=== PATIENT | male | born 1970 | race Caucasian/White ===

== ENCOUNTER 2021-01-01 16:54 | Emergency (ER) | payer OTHER ==
[~2021-01-01] VITALS: Ht 172.7 cm; Wt 84.4 kg
[~2021-01-01 16:54] MED LIST: ESCI10 PO
[2021-01-01 19:02] LABS: Source, Urine Clean Catch
[2021-01-01 19:08] LABS: Appearance, Urine Clear (Clear); Bilirubin, Urine Neg (Neg); Blood, Urine 1+ (Neg); Color, Urine Yellow (P-Yellow); Glucose Qualitative, Urine Neg (Neg); Ketones, Urine 1+ (Neg); Leukocyte Esterase, Urine Neg (Neg); Nitrite, Urine Neg (Neg); Protein, Urine 1+ (Neg); Specific Gravity, Urine 1.025 (1.003-1.022); Urobilinogen, Urine NORM (Normal)
[2021-01-01 19:22] LABS: Bacteria Mod /hpf; Mucus Light (0-Heavy); Red Blood Cells, Urine 0-2 /hpf (0-2); Squamous Epithelial Cells Not Seen /hpf (Few); White Blood Cells, Urine 0-2 /hpf (0-5)
== END 2021-01-01 20:00 | disposition home or self-care (01) ==
LOC: ER 16:54
PROVIDERS: Physician Assistant
DX: N43.3 Hydrocele, unspecified (principal); Q55.20 Unspecified congenital malformations of testis and scrotum; Z88.5 Allergy status to narcotic agent; Z79.899 Other long term (current) drug therapy; Z87.891 Personal history of nicotine dependence
CPT/HCPCS: 76870; 81001; 87086; 99284-25

== ENCOUNTER 2021-04-11 05:47 | Day surgery (SDC) | payer OTHER ==
[~2021-04-11] VITALS: Ht 172.7 cm; Wt 86.1 kg
[2021-04-11] MEDS ORDERED: FENO48 PO (06:22)
--- NOTE | 2021-04-11 10:35 | NUR ---
Patient up to Ambulate independently. Gait steady. Discharge instructions reviewed with patient. Patient verbalizes understanding. Copy given to patient to take home. Discharged via wheelchair to private car for ride home.
== END 2021-04-11 10:25 | disposition home or self-care (01) ==
LOC: ORSCMMR 05:47 → ORD 08:45 → ORSCMMR 10:25
PROVIDERS: Orthopaedic Surgery
PROC: 0SCC0ZZ Extirpation of Matter from Right Knee Joint, Open Approach (ICD-10-PCS; principal; 2021-04-11 07:30)
PROC: 0LML0ZZ Reattachment of Right Upper Leg Tendon, Open Approach (ICD-10-PCS; principal; 2021-04-11 07:30)
DX: S76.111A Strain of right quadriceps muscle, fascia and tendon, initial encounter (principal); S82.091A Other fracture of right patella, initial encounter for closed fracture; E78.5 Hyperlipidemia, unspecified; Z87.891 Personal history of nicotine dependence; Z79.899 Other long term (current) drug therapy
CPT/HCPCS: A9270; C1713; J0171; J0690; J0735; J1100; J1885; J2405; J2704; J2795; J3010; J7120

== ENCOUNTER 2021-07-11 14:55 | Emergency (ER) | payer OTHER ==
[~2021-07-11] VITALS: Ht 172.7 cm; Wt 87.5 kg
[~2021-07-11 14:55] MED LIST changes: +FENO48 PO
[2021-07-11 15:49] LABS: BASOPHILS ABSOLUTE AUTO 0.03 K/mm3 (0.00-0.23); BASOPHILS PERCENT AUTO 0 % (0-2); EOSINOPHILS ABSOLUTE AUTO 0.03 K/mm3 (0.00-0.68); EOSINOPHILS PERCENT AUTO 0 % (0-6); Hematocrit 45.8 % (37.0-53.0); Hemoglobin 16.8 g/dL (13.5-17.5); IMMATURE GRAN ABSOLUTE AUTO 0.04 K/mm3 (0.00-0.10); IMMATURE GRAN PERCENT AUTO 0 % (0-1); LYMPHOCYTES ABSOLUTE AUTO 0.93 K/mm3 (0.84-5.20); LYMPHOCYTES PERCENT AUTO 7 % (21-46); MONOCYTES ABSOLUTE AUTO 0.38 K/mm3 (0.16-1.47); MONOCYTES PERCENT AUTO 3 % (4-13); Mean Corpuscular HGB 35.7 pg (26.0-34.0); Mean Corpuscular HGB Conc 36.7 g/dL (31.5-36.5); Mean Corpuscular Volume 97 fL (80-100); Mean Platelet Volume 9.8 fL (9.1-12.4); NEUTROPHILS ABSOLUTE AUTO 11.67 K/mm3 (1.96-9.15); NEUTROPHILS PERCENT AUTO 89 % (41-73); Platelet Count 173 K/mm3 (150-400); RDW Coefficient Variation 12.3 % (11.7-14.2); RDW Standard Deviation 44.6 fL (35.1-46.3); Red Blood Cell Count 4.71 M/mm3 (4.30-5.90); White Blood Cell Count 13.08 K/mm3 (4.00-11.30)
[2021-07-11] MEDS ORDERED: ASPI81CH PO (17:03)
[2021-07-11 17:06] LABS: Source, Urine Clean Catch
[2021-07-11 17:09] LABS: Appearance, Urine Clear (Clear); Bilirubin, Urine Neg (Neg); Blood, Urine 2+ (Neg); Color, Urine Yellow (P-Yellow); Glucose Qualitative, Urine Neg (Neg); Ketones, Urine Neg (Neg); Leukocyte Esterase, Urine Neg (Neg); Nitrite, Urine Neg (Neg); Protein, Urine 1+ (Neg); Urobilinogen, Urine NORM (Normal)
[2021-07-11 17:15] LABS: Alanine Aminotransfer (ALT/SGP 69 U/L (12-78); Albumin, Blood 3.8 g/dL (3.4-5.0); Alk Phos 130 U/L (50-136); Anion Gap 7 mmol/L (6-16); Aspartate Aminotrans (AST/SGOT 33 U/L (12-37); Bilirubin, Total 0.8 mg/dL (0.1-1.0); Blood Urea Nitrogen 13 mg/dL (8-24); Bun/Creatinine Ratio 14.6 (12.0-20.0); CO2, Blood 22 mmol/L (21-32); Calcium, Blood 8.9 mg/dL (8.5-10.1); Chloride, Blood 108 mmol/L (98-108); Creatinine, Blood 0.89 mg/dL (0.60-1.20); Globulin, Blood 3.9 g/dL (2.2-4.0); Glomerular Filtration Rate >60 (60-); Glucose, Blood 162 mg/dL (70-99); Potassium, Blood 4.2 mmol/L (3.5-5.5); Sodium, Blood 137 mmol/L (136-145); Total Protein, Blood 7.7 g/dL (6.4-8.2)
[2021-07-11 17:26] LABS: Amorphous Light (0-Heavy); Bacteria Few /hpf; Mucus Light (0-Heavy)
[2021-07-11 17:28] LABS: Red Blood Cells, Urine 0-2 /hpf (0-2); Squamous Epithelial Cells Rare /hpf (Few); White Blood Cells, Urine Rare /hpf (0-5)
[2021-07-11] MEDS ORDERED: ONDA4ODT MM (18:25)
== END 2021-07-11 18:37 | disposition home or self-care (01) ==
LOC: ER 14:55
PROVIDERS: Physician Assistant
DX: Z87.891 Personal history of nicotine dependence (principal); K85.90 Acute pancreatitis without necrosis or infection, unspecified
CPT/HCPCS: 36415; 74176; 80053; 81001; 83690; 85025; A9270; J1170; J2405; J7030

== ENCOUNTER 2021-07-12 10:21 | Inpatient (IN) | payer OTHER ==
[~2021-07-12] VITALS: Ht 172.7 cm; Wt 88.0 kg
[~2021-07-12 10:21] MED LIST changes: +ASPI81CH PO; +ONDA4ODT MM
[2021-07-12 10:48] LABS: BASOPHILS ABSOLUTE AUTO 0.03 K/mm3 (0.00-0.23); BASOPHILS PERCENT AUTO 0 % (0-2); EOSINOPHILS PERCENT AUTO 0 % (0-6); Hemoglobin 17.9 g/dL (13.5-17.5); IMMATURE GRAN ABSOLUTE AUTO 0.03 K/mm3 (0.00-0.10); IMMATURE GRAN PERCENT AUTO 0 % (0-1); LYMPHOCYTES PERCENT AUTO 8 % (21-46); MONOCYTES PERCENT AUTO 5 % (4-13); Mean Corpuscular HGB 34.3 pg (26.0-34.0); Mean Corpuscular HGB Conc 35.1 g/dL (31.5-36.5); Mean Corpuscular Volume 98 fL (80-100); Mean Platelet Volume 9.9 fL (9.1-12.4); NEUTROPHILS ABSOLUTE AUTO 6.65 K/mm3 (1.96-9.15); NEUTROPHILS PERCENT AUTO 86 % (41-73); Platelet Count 159 K/mm3 (150-400); RDW Coefficient Variation 12.6 % (11.7-14.2); RDW Standard Deviation 45.3 fL (35.1-46.3); Red Blood Cell Count 5.22 M/mm3 (4.30-5.90); White Blood Cell Count 7.71 K/mm3 (4.00-11.30)
[2021-07-12 11:06] LABS: Alanine Aminotransfer (ALT/SGP 194 U/L (12-78); Albumin, Blood 3.8 g/dL (3.4-5.0); Albumin/Globulin Ratio 0.9 (0.8-1.8); Alk Phos 178 U/L (50-136); Anion Gap 11 mmol/L (6-16); Aspartate Aminotrans (AST/SGOT 209 U/L (12-37); Bilirubin, Total 3.7 mg/dL (0.1-1.0); Blood Urea Nitrogen 14 mg/dL (8-24); Bun/Creatinine Ratio 15.2 (12.0-20.0); CO2, Blood 22 mmol/L (21-32); Calcium, Blood 9.2 mg/dL (8.5-10.1); Chloride, Blood 103 mmol/L (98-108); Creatinine, Blood 0.92 mg/dL (0.60-1.20); Globulin, Blood 4.1 g/dL (2.2-4.0); Glomerular Filtration Rate >60 (60-); Glucose, Blood 258 mg/dL (70-99); Potassium, Blood 3.8 mmol/L (3.5-5.5); Sodium, Blood 136 mmol/L (136-145); Total Protein, Blood 7.9 g/dL (6.4-8.2)
[2021-07-12 12:39] LABS: Influenza A, PCR NEGATIVE (NEGATIVE); Influenza B, PCR NEGATIVE (NEGATIVE); Resp Syncytial Virus, PCR NEGATIVE (NEGATIVE); SARS-Cov-2 (COVID-19) PCR, MMC NEGATIVE (NEGATIVE)
--- NOTE | 2021-07-12 13:00 | NUR ---
pt has all his paper work and belongings, left via wheelchair with management coordinator in attendence.
[2021-07-12 14:07] LABS: International Normalized Ratio 1.09; Prothrombin Time Results 11.4 Sec (9.7-11.5)
[2021-07-12 21:42] LABS: U Amphetamine Screen Not Detected; U Barbituate Screen Not Detected; U Benzodiazapine Screen Not Detected; U Buprenorphine Screen Not Detected; U Cannabinoids Screen Not Detected; U Cocaine Screen Not Detected; U Methadone Screen Not Detected; U Methamphetamine Screen Not Detected; U Opiates Screen DETECTED; U Oxycodone Screen DETECTED; U Phencyclidine Screen Not Detected; U Propoxyphene Screen Not Detected
--- NOTE | 2021-07-13 01:18 | NUR ---
AT 2330, JUST AFTER TAKING A COUPLE BITES OF ORANGE CHOCOLATE, THE PATIENT BEGAN WRETCHING APPROX 200ML OF BROWNISH/RED CLEAR EMESIS WITH SMALL AMOUNT OF REDDISH STREAKS. THEN, AROUND 0100, DEANDRA FINISHED THE WATER FROM A SMALL GLASS OF ICE, AND VOMITED 150ML OF REDDISH/BROWN MUCOUSY EMESIS WITH RED STRANDS OF TISSUE AND WHAT LOOKED LIKE TWO 1-1.5" LONG WHITISH/YELLOW PIECES OF ADIPOSE TISSUE. AT THAT TIME, HE DECLINED WANT FOR ANY ANTIEMETICS, THEN HAS BEEN SLEEPING SITTING STRAIGHT UP IN BED SLEEPING EVER SINCE.
--- NOTE | 2021-07-13 02:57 | NUR ---
ANOTHER 150ML EMESIS BROWN/REDDISH WITH MUCOUSY TEXTURE. MD NOTIFIED. PATIENT IS TO BE STRICT NPO. NO ICE CHIPS OR H2O. EACH TIME HE EATS ICE OR SIPS H2O, HE VOMITS. CIWA IS AT AN 8. ATIVAN GIVEN PER EMAR
[2021-07-13 04:01] LABS: Hematocrit 51.1 % (37.0-53.0); Hemoglobin 17.6 g/dL (13.5-17.5); Mean Corpuscular HGB 34.1 pg (26.0-34.0); Mean Corpuscular HGB Conc 34.4 g/dL (31.5-36.5); Mean Corpuscular Volume 99 fL (80-100); Mean Platelet Volume 10.1 fL (9.1-12.4); Platelet Count 124 K/mm3 (150-400); RDW Coefficient Variation 13.1 % (11.7-14.2); RDW Standard Deviation 48.1 fL (35.1-46.3); Red Blood Cell Count 5.16 M/mm3 (4.30-5.90); White Blood Cell Count 8.72 K/mm3 (4.00-11.30)
[2021-07-13 04:13] LABS: International Normalized Ratio 1.3; Prothrombin Time Results 13.4 Sec (9.7-11.5)
[2021-07-13 04:39] LABS: Alanine Aminotransfer (ALT/SGP 149 U/L (12-78); Albumin, Blood 3.3 g/dL (3.4-5.0); Albumin/Globulin Ratio 1.2 (0.8-1.8); Alk Phos 172 U/L (50-136); Anion Gap 10 mmol/L (6-16); Aspartate Aminotrans (AST/SGOT 98 U/L (12-37); Bilirubin, Total 6.8 mg/dL (0.1-1.0); Blood Urea Nitrogen 22 mg/dL (8-24); Bun/Creatinine Ratio 21.6 (12.0-20.0); CO2, Blood 24 mmol/L (21-32); Calcium, Blood 8.6 mg/dL (8.5-10.1); Chloride, Blood 104 mmol/L (98-108); Creatinine, Blood 1.02 mg/dL (0.60-1.20); Globulin, Blood 2.8 g/dL (2.2-4.0); Glomerular Filtration Rate >60 (60-); Glucose, Blood 225 mg/dL (70-99); Magnesium, Blood 1.7 mg/dL (1.6-2.4); Potassium, Blood 4.2 mmol/L (3.5-5.5); Sodium, Blood 138 mmol/L (136-145); Total Protein, Blood 6.1 g/dL (6.4-8.2)
[2021-07-13 05:50] LABS: BAND PERCENT MAN 21 % (0-8); BASOPHILS ABSOLUTE MAN 0.08 K/mm3 (0.00-0.23); BASOPHILS PERCENT MAN 1 % (0-2); EOSINOPHILS PERCENT MAN 0 % (0-6); LYMPHOCYTES ABSOLUTE MAN 0.69 K/mm3 (0.84-5.20); LYMPHOCYTES PERCENT MAN 8 % (21-46); MONOCYTES ABSOLUTE MAN 0.69 K/mm3 (0.16-1.47); MONOCYTES PERCENT MAN 8 % (4-13); NEUTROPHILS ABSOLUTE MAN 7.23 K/mm3 (1.96-9.15); SEG NEUTROPHILS PERCENT MAN 62 % (41-73); TOTAL CELLS COUNTED 100
--- NOTE | 2021-07-13 05:57 | NUR ---
DEANDRA HAS HAD A MYRIAD OF PROBLEMS OVERNIGHT. HE HAS HAD UNRELENTING NAUSEA, WITH EMESIS TOTALING 700ML OF BROWN/RED MUCOUSY BLOOD TINGED FLUID. (PLEASE SEE NURSES NOTES) EACH TIME THE PATIENT WAS DISTURBED, HE WOULD VOMIT EITHER IMMEDIATELY OR 3-4 MINUTES LATER. BOTH ZOSYN, REGLAN AND ATIVAN HAVE BEEN TRIED TO GIVE DEANDRA SOME RELIEF. EACH SEEMS VERY TEMPORARY. NIGHT HOSPITALIST WAS INFORMED OF SITUATION. STAT HEMOGRAM WAS ORDERED REVEALING HGB OF 17.6. PATIENT IS ON STRICT I&O. INCLUDING ICE CHIPS PER NIGHT HOSPITALIST. AWAITING DICTATION FROM ADMITTING RESIDENT AND DR. HAWKINS.
[2021-07-13 08:26] LABS: CHOL/HDL RATIO 20.3; Cholesterol 244 mg/dL (50-200); HDL Cholesterol 12 mg/dL (>39); LDL/HDL RATIO Unable to Calculate; Low Density Lipoprotein Chol Unable to Calculate mg/dL (0-110); Triglycerides 586 mg/dL (30-160); Very Low Density Lipoprot Chol 117 mg/dL (6-32)
[2021-07-13 08:43] LABS: LDL Direct Measurement 79 mg/dL (0-130)
--- NOTE | 2021-07-13 17:15 | NUR ---
SHIFT SUMMARY PATIENT ALERT AND ORIENTED THROUGHOUT THIS SHIFT. PATIENT CONTINUES TO HAVE A DISTENDED ABDOMEN WITH ABDOMINAL PAIN. PATIENT DENIES NEED FOR PAIN MEDICATION THROUGHOUT THIS SHIFT. PATIENT N/V THROUGHOUT THIS SHIFT. PATIENT MEDICATED PRN THIS AM, PATIENT DENIES NEED FOR FURTHER MEDICATION THIS AFTERNOON. PATIENT DRINKING ILAN MIST AND L/L GATORADE TO TEST TOLERANCE OF CLEAR LIQUIDS. PATIENT STATES THAT HE IS TOLERATING THESE BETTER THAN WATER. PATIENT CURRENTLY RESTING IN BED.
--- NOTE | 2021-07-14 05:23 | NUR ---
SHIFT SUMMARY PT. ADMITTED WITH NECROTIZING PANCREATITIS AND CIWA IN PLACE. PT. IS ON CLEAR LIQUIDS THIS SHIFT ADVANCED TOLERATED PER ORDER. PT. THREW UP RED/BROWN EMESIS ALL SHIFT AND C/O PAIN. MEDICATED PER EMAR AND RLL COLOSTOMY BAG INTACT. SPEECH NOT CLEAR AT TIMES BUT ABLE TO MAKE REQUESTS KNOWN. PT. RESTED SOME THIS SHIFT AND THIS NURSE WILL CONTINUE TO MONITOR UNTIL REPORT IS GIVEN.
[2021-07-14 07:30] LABS: BASOPHILS ABSOLUTE AUTO 0.03 K/mm3 (0.00-0.23); BASOPHILS PERCENT AUTO 0 % (0-2); Hemoglobin 14.7 g/dL (13.5-17.5); LYMPHOCYTES PERCENT AUTO 12 % (21-46); MONOCYTES ABSOLUTE AUTO 0.44 K/mm3 (0.16-1.47); MONOCYTES PERCENT AUTO 6 % (4-13); Mean Corpuscular HGB 34.4 pg (26.0-34.0); Mean Corpuscular Volume 98 fL (80-100); Mean Platelet Volume 10.6 fL (9.1-12.4); Platelet Count 137 K/mm3 (150-400); RDW Coefficient Variation 13.2 % (11.7-14.2); RDW Standard Deviation 47.8 fL (35.1-46.3); Red Blood Cell Count 4.27 M/mm3 (4.30-5.90); White Blood Cell Count 7.65 K/mm3 (4.00-11.30)
[2021-07-14 07:35] LABS: EOSINOPHILS ABSOLUTE AUTO 0.02 K/mm3 (0.00-0.68); EOSINOPHILS PERCENT AUTO 0 % (0-6); IMMATURE GRAN ABSOLUTE AUTO 0.07 K/mm3 (0.00-0.10); IMMATURE GRAN PERCENT AUTO 1 % (0-1); NEUTROPHILS ABSOLUTE AUTO 6.19 K/mm3 (1.96-9.15); NEUTROPHILS PERCENT AUTO 81 % (41-73)
[2021-07-14 07:45] LABS: Alanine Aminotransfer (ALT/SGP 155 U/L (12-78); Albumin, Blood 2.9 g/dL (3.4-5.0); Albumin/Globulin Ratio 0.9 (0.8-1.8); Alk Phos 224 U/L (50-136); Anion Gap 7 mmol/L (6-16); Aspartate Aminotrans (AST/SGOT 133 U/L (12-37); Bilirubin, Total 6.7 mg/dL (0.1-1.0); Blood Urea Nitrogen 29 mg/dL (8-24); Bun/Creatinine Ratio 32.3 (12.0-20.0); CO2, Blood 34 mmol/L (21-32); Calcium, Blood 8.4 mg/dL (8.5-10.1); Chloride, Blood 98 mmol/L (98-108); Globulin, Blood 3.1 g/dL (2.2-4.0); Glomerular Filtration Rate >60 (60-); Glucose, Blood 152 mg/dL (70-99); Potassium, Blood 3.1 mmol/L (3.5-5.5); Sodium, Blood 139 mmol/L (136-145)
--- NOTE | 2021-07-14 17:42 | NUR ---
PT AOX4 AND COOPERATIVE OF CARE. PT HAS CONTINUED TO NEED TREATMENT FOR NAUSEA AND HAS HAD MULTIPLE EPISODES OF EMESIS DARK BROWN IN COLOR AND WAS TREATED PER EMAR. PT HAD IV GO BAD AND A NEW POWERGLIDE WAS PLACE. PT ALSO HAS COMPLAINED OF BACK PAIN AND IS TREATED PER EMAR. PT RESTING IN BED AT THIS TIME WILL CONTINUE TO MONITOR.
--- NOTE | 2021-07-15 05:07 | NUR ---
SHIFT SUMMARY PT. O2 DROPPED TO [address], 4L OF O2 APPLIED BY RESIPRATORY. PT. HAS CONTINUED TO EXPERIENCE N/V THIS SHIFT AND MEDICATED PER EMAR. BACK PAIN INCREASED THIS SHIFT AND WAS MEDICATED PER EMAR. DIET IS STILL CLEAR LIQUIDS AND NOTHING HAS STAYED DOWN. WILL CONTINUE TO MONITOR UNTIL REPORT IS GIVEN.
[2021-07-15 05:17] LABS: BASOPHILS ABSOLUTE AUTO 0.04 K/mm3 (0.00-0.23); BASOPHILS PERCENT AUTO 1 % (0-2); Hematocrit 42.5 % (37.0-53.0); Hemoglobin 14.6 g/dL (13.5-17.5); LYMPHOCYTES ABSOLUTE AUTO 0.65 K/mm3 (0.84-5.20); LYMPHOCYTES PERCENT AUTO 9 % (21-46); MONOCYTES ABSOLUTE AUTO 0.32 K/mm3 (0.16-1.47); MONOCYTES PERCENT AUTO 5 % (4-13); Mean Corpuscular HGB 33.6 pg (26.0-34.0); Mean Corpuscular HGB Conc 34.4 g/dL (31.5-36.5); Mean Corpuscular Volume 98 fL (80-100); Mean Platelet Volume 10.8 fL (9.1-12.4); Platelet Count 169 K/mm3 (150-400); RDW Coefficient Variation 13.2 % (11.7-14.2); RDW Standard Deviation 47.8 fL (35.1-46.3); Red Blood Cell Count 4.34 M/mm3 (4.30-5.90); White Blood Cell Count 6.89 K/mm3 (4.00-11.30)
[2021-07-15 05:20] LABS: EOSINOPHILS ABSOLUTE AUTO 0.01 K/mm3 (0.00-0.68); EOSINOPHILS PERCENT AUTO 0 % (0-6); IMMATURE GRAN ABSOLUTE AUTO 0.04 K/mm3 (0.00-0.10); IMMATURE GRAN PERCENT AUTO 1 % (0-1); NEUTROPHILS ABSOLUTE AUTO 5.83 K/mm3 (1.96-9.15); NEUTROPHILS PERCENT AUTO 85 % (41-73)
[2021-07-15 05:38] LABS: BAND PERCENT MAN 3 % (0-8); BASOPHILS PERCENT MAN 0 % (0-2); EOSINOPHILS PERCENT MAN 0 % (0-6); LYMPHOCYTES ABSOLUTE MAN 0.68 K/mm3 (0.84-5.20); LYMPHOCYTES PERCENT MAN 10 % (21-46); MONOCYTES ABSOLUTE MAN 0.27 K/mm3 (0.16-1.47); MONOCYTES PERCENT MAN 4 % (4-13); NEUTROPHILS ABSOLUTE MAN 5.92 K/mm3 (1.96-9.15); SEG NEUTROPHILS PERCENT MAN 83 % (41-73); TOTAL CELLS COUNTED 100
[2021-07-15 06:10] LABS: Alanine Aminotransfer (ALT/SGP 244 U/L (12-78); Albumin, Blood 2.9 g/dL (3.4-5.0); Albumin/Globulin Ratio 0.9 (0.8-1.8); Alk Phos 349 U/L (50-136); Anion Gap 13 mmol/L (6-16); Aspartate Aminotrans (AST/SGOT 226 U/L (12-37); Bilirubin, Total 7.4 mg/dL (0.1-1.0); Blood Urea Nitrogen 29 mg/dL (8-24); Bun/Creatinine Ratio 35.1 (12.0-20.0); CO2, Blood 28 mmol/L (21-32); Calcium, Blood 8.9 mg/dL (8.5-10.1); Chloride, Blood 99 mmol/L (98-108); Creatinine, Blood 0.83 mg/dL (0.60-1.20); Globulin, Blood 3.3 g/dL (2.2-4.0); Glomerular Filtration Rate >60 (60-); Glucose, Blood 165 mg/dL (70-99); Potassium, Blood 3.5 mmol/L (3.5-5.5); Sodium, Blood 140 mmol/L (136-145); Total Protein, Blood 6.2 g/dL (6.4-8.2)
--- NOTE | 2021-07-15 07:33 | NUR ---
pt laying in bed, called nurse in but not clear what he needed, he states he's feeling some better, ostomy is empty, asked him how long it's been since it needed to be emtied, he didn't know, power glide to nighat site flushes, but ua is very swollen and tight, notified charge nurse, pt follows commands and is cooperative with care, lungs are clear t/o, resp even and unlabored, no cough noted, currently on 4 liters 02 via n/c, hrr, tele in place running st with bbb, no edema noted, ppp+1, cap refill <3sec, vs stable, afebrile, bt not auscultated in any quad, voiding dk geo urine via urinal, skin c/w/d, haley rdz, call light in reach.
--- NOTE | 2021-07-15 16:02 | NUR ---
power glide this am infiltrated, a new one was placed to his alvaro, this infiltrated, picc line was considered, but unable to obtain access, pic placed to [facility], this infiltrated, called Dr. Hodges about this and asked for c.l. placement. she will get back to me. call light in reach.
--- NOTE | 2021-07-15 18:23 | NUR ---
all iv access infiltrated, Dr. Leach was consulted to place a central line, charge nurse states there is a blockage and will need interventional radiologist. zofran given prior to procedure. no further changes this shift. call light in reach.
--- NOTE | 2021-07-15 21:44 | NUR ---
DAUGHTER, CELSO NOTIFIED THAT HER DAD HAD BEEN TRANSFERRED TO PCU 9.
--- NOTE | 2021-07-15 21:49 | NUR ---
2129 PT TRANSFERED FROM MED FLOOR TO ROOM 9, ASSUMED CARE OF PT, REPORT REC'Victor M KAYE RN
[2021-07-16 04:51] LABS: BASOPHILS ABSOLUTE AUTO 0.04 K/mm3 (0.00-0.23); BASOPHILS PERCENT AUTO 1 % (0-2); EOSINOPHILS ABSOLUTE AUTO 0.05 K/mm3 (0.00-0.68); EOSINOPHILS PERCENT AUTO 1 % (0-6); Hematocrit 38.7 % (37.0-53.0); Hemoglobin 13.3 g/dL (13.5-17.5); IMMATURE GRAN ABSOLUTE AUTO 0.07 K/mm3 (0.00-0.10); IMMATURE GRAN PERCENT AUTO 1 % (0-1); LYMPHOCYTES ABSOLUTE AUTO 0.71 K/mm3 (0.84-5.20); LYMPHOCYTES PERCENT AUTO 11 % (21-46); MONOCYTES ABSOLUTE AUTO 0.36 K/mm3 (0.16-1.47); MONOCYTES PERCENT AUTO 6 % (4-13); Mean Corpuscular HGB Conc 34.4 g/dL (31.5-36.5); Mean Corpuscular Volume 99 fL (80-100); Mean Platelet Volume 11.1 fL (9.1-12.4); NEUTROPHILS ABSOLUTE AUTO 5.26 K/mm3 (1.96-9.15); NEUTROPHILS PERCENT AUTO 81 % (41-73); Platelet Count 142 K/mm3 (150-400); RDW Coefficient Variation 13.6 % (11.7-14.2); RDW Standard Deviation 49.4 fL (35.1-46.3); Red Blood Cell Count 3.91 M/mm3 (4.30-5.90); White Blood Cell Count 6.49 K/mm3 (4.00-11.30)
[2021-07-16 05:05] LABS: Anion Gap 10 mmol/L (6-16); Blood Urea Nitrogen 40 mg/dL (8-24); Bun/Creatinine Ratio 38.5 (12.0-20.0); CO2, Blood 30 mmol/L (21-32); Calcium, Blood 8.6 mg/dL (8.5-10.1); Chloride, Blood 99 mmol/L (98-108); Creatinine, Blood 1.04 mg/dL (0.60-1.20); Glomerular Filtration Rate >60 (60-); Glucose, Blood 150 mg/dL (70-99); Sodium, Blood 139 mmol/L (136-145)
--- NOTE | 2021-07-16 06:21 | NUR ---
0615 PT AM LABS SHOW K+ 3.0, DR HECTOR AWARE. PT HAS NO SALUD ACCESS, WILL HAVE CVL PLACED VIA INTERVENTIONAL RADIOLGY AND IS ALSO NPO DUE TO N/V. MICHAEL KAYE
--- NOTE | 2021-07-16 17:54 | NUR ---
PT ARRIVED TO [facility] AT 1750. PT AOX3 AND COOPERATIVE OF CARE. PT RESTING IN BED. PT HAD MILD NAUSEA AFTER TRYING TO DRINK SOME BROTH PRIOR TO TRANSFER. PT HAS EMESIS BAG WITHIN REACH. CALL LIGHT WITHIN REACH WILL CONTINUE TO MONTITOR.
--- NOTE | 2021-07-16 18:03 | NUR ---
TRANSFER SUMMARY: REPORT GIVEN TO NELLIE RODRIGUEZ, TRANSFERRED VIA BED TO ROOM 364. PATIENT DENIES CHEST PAIN, SOB. MED STATUS NO TELE. CLINIMIX AND BELONGINGS ALONG FOR TRANSFER BY SHOSHANA RODRIGUEZ AND KATHRIN POZO II. PATIENT ON RA 94-95%.
[2021-07-17 04:59] LABS: Hematocrit 38.1 % (37.0-53.0); Hemoglobin 13.1 g/dL (13.5-17.5); Mean Corpuscular HGB 34.1 pg (26.0-34.0); Mean Corpuscular HGB Conc 34.4 g/dL (31.5-36.5); Mean Corpuscular Volume 99 fL (80-100); NRBC ABSOLUTE 0.02 K/mm3 (0.00-0.02); NRBC Auto 0.3 /100 WBC (0.0-0.2); Platelet Count 153 K/mm3 (150-400); RDW Standard Deviation 50.9 fL (35.1-46.3); Red Blood Cell Count 3.84 M/mm3 (4.30-5.90); White Blood Cell Count 6.67 K/mm3 (4.00-11.30)
[2021-07-17 06:12] LABS: Alanine Aminotransfer (ALT/SGP 174 U/L (12-78); Albumin, Blood 2.4 g/dL (3.4-5.0); Albumin/Globulin Ratio 0.8 (0.8-1.8); Alk Phos 280 U/L (50-136); Anion Gap 10 mmol/L (6-16); Aspartate Aminotrans (AST/SGOT 97 U/L (12-37); Bilirubin, Total 2.1 mg/dL (0.1-1.0); Blood Urea Nitrogen 26 mg/dL (8-24); Bun/Creatinine Ratio 31.8 (12.0-20.0); CO2, Blood 27 mmol/L (21-32); Calcium, Blood 8.5 mg/dL (8.5-10.1); Chloride, Blood 102 mmol/L (98-108); Creatinine, Blood 0.82 mg/dL (0.60-1.20); Globulin, Blood 3.1 g/dL (2.2-4.0); Glomerular Filtration Rate >60 (60-); Glucose, Blood 142 mg/dL (70-99); Potassium, Blood 3.3 mmol/L (3.5-5.5); Sodium, Blood 139 mmol/L (136-145); Total Protein, Blood 5.5 g/dL (6.4-8.2)
[2021-07-17 06:16] LABS: BAND PERCENT MAN 8 % (0-8); BASOPHILS ABSOLUTE MAN 0.06 K/mm3 (0.00-0.23); BASOPHILS PERCENT MAN 1 % (0-2); EOSINOPHILS ABSOLUTE MAN 0.13 K/mm3 (0.00-0.68); EOSINOPHILS PERCENT MAN 2 % (0-6); LYMPHOCYTES PERCENT MAN 6 % (21-46); METAMYELOCYTE ABSOLUTE MAN 0.13 K/mm3 (0.00-0.00); METAMYELOCYTE PERCENT MAN 2 % (0-0); MONOCYTES ABSOLUTE MAN 0.66 K/mm3 (0.16-1.47); MONOCYTES PERCENT MAN 10 % (4-13); MYELOCYTE ABSOLUTE MAN 0.13 K/mm3 (0.00-0.00); MYELOCYTE PERCENT MAN 2 % (0-0); NEUTROPHILS ABSOLUTE MAN 5.13 K/mm3 (1.96-9.15); SEG NEUTROPHILS PERCENT MAN 69 % (41-73); TOTAL CELLS COUNTED 100
--- NOTE | 2021-07-17 06:17 | NUR ---
SHIFT SUMMARY PT AOX3 AND C/O BACK PAIN AT THE START OF THIS SHIFT. PT. WAS MEDICATED FOR PAIN THROUGHOUT THE SHIFT PER EMAR. PT. CHANGED OSTOMY BAG THIS MORNING WITH LITTLE TO NO ASSISTANCE FROM STAFF. PT. RESTED SOME AND DENIES ANY OTHER NEEDS AT THE MOMENT. WILL CONTINUE TO MONITOR UNTIL REPORT IS GIVEN.
[2021-07-17 14:33] LABS: Anion Gap 9 mmol/L (6-16); Blood Urea Nitrogen 23 mg/dL (8-24); Bun/Creatinine Ratio 28.8 (12.0-20.0); CO2, Blood 29 mmol/L (21-32); Calcium, Blood 8.5 mg/dL (8.5-10.1); Chloride, Blood 101 mmol/L (98-108); Glomerular Filtration Rate >60 (60-); Glucose, Blood 144 mg/dL (70-99); Potassium, Blood 3.5 mmol/L (3.5-5.5); Sodium, Blood 139 mmol/L (136-145)
--- NOTE | 2021-07-17 18:33 | NUR ---
SHIFT SUMMARY PT HAS BEEN IN BED THROUGH THE DAY. ATE ONLY A SMALL AMOUNT OF SOFT TEXTURE LUNCH WITH EMESIS. DOWNGRADED TO FULL LIQUID FOR SUPPER. REPORTS LOTS OF BURPING AND A BURNING SENSATION IN HIS THROAT WHENEVER HE SWALLOWS. REPORTS MOST OF HIS PAIN IS TO HIS BACK. PT/OT ORDERED FOR TOMORROW. DR. HAWKINS IN TO SEE PT MIDDAY AND REPORTED VERY IMPROVED FROM EARLIER IN THE VISIT. OSTOMY BAG EMPTIED MIDDAY WELL.
[2021-07-18 05:55] LABS: Hematocrit 37.2 % (37.0-53.0); Hemoglobin 12.8 g/dL (13.5-17.5); Mean Corpuscular HGB Conc 34.4 g/dL (31.5-36.5); Mean Corpuscular Volume 99 fL (80-100); Mean Platelet Volume 10.8 fL (9.1-12.4); Platelet Count 148 K/mm3 (150-400); RDW Coefficient Variation 13.4 % (11.7-14.2); RDW Standard Deviation 49.1 fL (35.1-46.3); Red Blood Cell Count 3.76 M/mm3 (4.30-5.90)
[2021-07-18 06:22] LABS: Anion Gap 11 mmol/L (6-16); Blood Urea Nitrogen 26 mg/dL (8-24); Bun/Creatinine Ratio 35.2 (12.0-20.0); CO2, Blood 25 mmol/L (21-32); Calcium, Blood 8.5 mg/dL (8.5-10.1); Chloride, Blood 101 mmol/L (98-108); Creatinine, Blood 0.74 mg/dL (0.60-1.20); Glomerular Filtration Rate >60 (60-); Glucose, Blood 159 mg/dL (70-99); Potassium, Blood 3.2 mmol/L (3.5-5.5); Sodium, Blood 137 mmol/L (136-145)
[2021-07-18 07:06] LABS: BAND PERCENT MAN 13 % (0-8); BASOPHILS ABSOLUTE MAN 0.06 K/mm3 (0.00-0.23); BASOPHILS PERCENT MAN 1 % (0-2); EOSINOPHILS ABSOLUTE MAN 0.06 K/mm3 (0.00-0.68); EOSINOPHILS PERCENT MAN 1 % (0-6); LYMPHOCYTES ABSOLUTE MAN 0.87 K/mm3 (0.84-5.20); LYMPHOCYTES PERCENT MAN 13 % (21-46); MONOCYTES PERCENT MAN 6 % (4-13); NEUTROPHILS ABSOLUTE MAN 5.29 K/mm3 (1.96-9.15); SEG NEUTROPHILS PERCENT MAN 66 % (41-73); TOTAL CELLS COUNTED 100
--- NOTE | 2021-07-18 07:17 | NUR ---
Tye had a rough night between his back pain, which has been greatly exacerbated since being in the hospital, and his constant nausea. He only vomited once. (300 tanish brown) around midnight. ileostomy pouch emptied 3 times with dark brown thin liquid. very poor appetite due to his nausea.
[2021-07-18 11:00] LABS: Source, Urine Clean Catch
[2021-07-18 11:05] LABS: Appearance, Urine Clear (Clear); Bilirubin, Urine Neg (Neg); Blood, Urine Neg (Neg); Color, Urine Yellow (P-Yellow); Glucose Qualitative, Urine Neg (Neg); Ketones, Urine Neg (Neg); Leukocyte Esterase, Urine Neg (Neg); Nitrite, Urine Neg (Neg); Protein, Urine Neg (Neg); Urobilinogen, Urine NORM (Normal)
--- NOTE | 2021-07-18 17:40 | NUR ---
SHIFT SUMMARY PATIENT HAD A GOOD DAY. WAS ABLE TO GET UP AND SIT IN CHAIR FOR 3 HOURS TODAY AND WORKED WITH PT AND OT AND WAS ABLE TO WALK THE HALLS. MEDICATED FOR PAIN X 2 WITH DILAUDID IV. C/O NAUSEA BUT NO VOMITING AND MEDICATED WITH ZOFRAN X 2 WELL. NO C/O SOB OR OTHER ISSUES. NAD NOTED, VSS AND WILL CONTINUE TO MONITOR IN CARE. POTASSIUM REPLACED WITH 2 20 MEQ INFUSIONS
--- NOTE | 2021-07-19 04:34 | NUR ---
PATIENT HAS BEEN PLEASANT AND COOPERATIVE THIS SHIFT. VITALS STABLE. CONTINUES TO RECIEVE IV CLINIMIX. C/O THROAT PAIN HOWEVER REFUSES TO TAKE THE MAGIC MOUTHWASH PER EMAR. PATIENT HAS BEEN MEDICATED FOR PAIN AND NAUSEA REGULARLY T/O THIS SHIFT AND HE SEEMS TO TAKE CAT NAPS BETWEEN DOSES AND THEN AWAKENS IN PAIN. THERE HAVE BEEN NO OTHER ACUTE CHANGES TO REPORT OF AT THIS TIME. CALL LIGHT WITHIN REACH.
[2021-07-19] MEDS ORDERED: FOLI1 PO (12:15)
[2021-07-19] MEDS ORDERED: B-1100 M1 PO (12:15)
[2021-07-19] MEDS ORDERED: OMEP20ER PO (12:15)
--- NOTE | 2021-07-19 18:11 | NUR ---
SHIFT SUMMARY PT HAS BEEN WALKING IN HALLWAY USING FWW WITH STAFF. WALKED AROUND THE UNIT. REPORTED FEELING QUITE TIRED AFTERWARD BUT ALSO SAID IT FELT GOOD. ATE A PIECE OF TOAST FOR BREAKFAST AND REPORTED IT CAUSING PAIN WITH SWALLOWING. HAS HAD A FEW VERY PAINFUL EPISODES TODAY WITH GASTRIC REFLUX. LOTS OF FOUL SMELLING BELCHING. HAS EMPTIED HIS OSTOMY BAG 2-3 TIMES TODAY. SAT IN CHAIR FOR LUNCH. ATTEMPTING A HALF A SANDWICH WITH SUPPER. DISCHARGE DELAYED DUE TO CONTINUED SEVERE PAIN FROM GASTRIC REFLUX. VOICE IS STRONGER TODAY AND MUCH MORE INTERACTIVE WITH STAFF.
--- NOTE | 2021-07-20 06:07 | NUR ---
SHIFT SUMMARY PATIENT ALERT AND ORIENTED. MEDICATED PER EMAR FOR BACK AND THROAT PAIN. HAD NO COMPLAINTS OF SHORTNESS OF BREATH. NO ACUTE ISSUES NOTED OVERNIGHT. CALL LIGHT WITHIN REACH. REPORT GIVEN TO ONCOMING RN.
--- NOTE | 2021-07-20 10:28 | NUR ---
SPOKE TO DR- PLAN IS FOR PT TO DISCHARGE TODAY. SPOKE TO DR ABOUT EXISTING ORDERS ORDER RECIEVED TO CANCEL THE EXISTING DISCHARGE THEY WILL REDO A DIFFERENT ONE TODAY. PT WAS ABLE TO TOLLERATE THE MAGIC MOUTHWASH AT THE LOWER AMOUNT ORDERED, HE STATED THAT IT REALLY HELPED WITH HIS ESOPHAGITIS PAIN. PT DID C/O PAIN COMING IN WAVES IN HIS BACK MEDICATED WITH MUSCLE SPASAM RELIEF MEDICATION, PT STATES THE PAIN IS WELL MANAGED NOW.
--- NOTE | 2021-07-20 12:00 | NUR ---
CALLED AND SPOKE TO DR MOE- PT SITTING AT THE EOB HOLDING AN EMESIS BAG WITH 1400ML OF BROWN AND GREEN EMESIS IN IT. UPDATED DR MOE AND SHE STATED THE PT SHOULD PROBABLY STAY ANOTHER DAY, REQUESTED THAT SHE COME TO SPEAK TO THE PT, SHE WILL COME SEE HIM SOON.
--- NOTE | 2021-07-20 16:00 | NUR ---
CALLED DR HERNANDEZ- DR HAWKINS HAD COME TO SEE THE PT A WHILE AGO AND ASKED FOR THE DOCTORS NUMBER SO HE COULD PSEAK TO THEM. PER DR HAWKINS PT OK TO DISCHARGE FROM GI STANDPOINT. SPOKE TO DR HERNANDEZ ABOUT THIS. ALSO THE PT HAS ONLY BEEN ON IV MEDICATIONS FOR PAIN AND NAUSEA, NOTHING ORAL. REQUESTED ORDERS FOR ORAL MEDICATIONS IF THE PT DOES NOT DISCHARGE TONIGHT. THE DOCTORS ARE CURRENTLY IN A MEETING AND WILL COME SPEAK WITH THE PT AFTER THEY ARE DONE.
--- NOTE | 2021-07-20 18:20 | NUR ---
SHIFT SUMMARY- DR HERNANDEZ CAME TO SEE THE PT AND SPOKE TO HIM AND HIS SON (WITH THE PT PERMISSION) ABOUT THE PT CURRENT DIAGNOSIS AND THE CONCERNS WITH HIM STILL HAVING THE ONE EPISODE OF EMESIS 1400ML TODAY. THE PLAN IS TO TRANSITION THE PT TO ORAL MEDICATIONS FOR SYMPTOM MANAGMENT, IF NO EMESIS PRODUCTION AND THE PT PAIN IS WELL MANAGED THE PLAN IS TO DISCHARGE HIM HOME TOMORROW. INSPECTOR FABRIC NOTIFIED OF THE POSPONEMENT. CENTRAL LINE WILL BE DC'D PRIOR TO PT DISCHARGE HOWEVER IS THE ONLY ACCESS THAT CAN BE OBTAINED FOR THIS PT, PLACED IN ICU BY DR GARDNER. DR HERNANDEZ STATED THE RESIDENTS CAN REMOVE IT WHEN THE PT IS DISCHARGED. OK TO LEAVE IN PLACE UNTIL DISCHARGE. PT SITTING UP IN BED CALL LIGHT IN REACH SON AT THE BEDSIDE. PT ALERT AND ORIENTED. GAVE IV REGLAN FOR SOME NAUSEA PRIOR TO PT EATING DINNER.
--- NOTE | 2021-07-21 07:26 | NUR ---
SHIFT SUMMARY PT IS A 50 Y/O MALE, ADMITTED FOR ACUTE PANCREATITIS R/T ETOH. HE IS A&O X 4, INDEPENDENT IN THE ROOM. PT REPORTED SEVERE THROAT PAIN AT START OF SHIFT THAT WAS NOT RELIEVED WITH MAGIC MOUTH WASH OR PO OXYCODONE. PT ALSO EXPERIENCED ANOTHER EPISODE OF SEVERE EMESIS, THOUGH DENIED ANY RELATED NAUSEA OR NEED FOR NAUSEA MEDS. PT STATED THAT "I THINK ALL OF THE JUICE IS DOING THIS", OR THE MAGIC MOUTHWASH. HOSPITALIST DR HECTOR WAS NOTIFIED, AND PRN CEPACHOL LOSENGES ORDERED. PT REPORTED THIS AM THAT ABD AND THROAT PAIN WAS IMPROVED THIS AM, BUT STILL HAD THROAT PAIN WITH SWALLOWING. NO C/O SOB. VITAL SIGNS STABLE. NO ACUTE CHANGES IN PT CONDITION NOTED. REPORT GIVEN TO ONCOMING MICHAEL.
--- NOTE | 2021-07-21 17:55 | NUR ---
SHIFT SUMMARY: PT A/O X 4 IND IN ROOM TODAY. PT REPORTING FEELING STRONGER TODAY. PT HAS HAD HEARTBURN OFF AND ON TODAY WITH ONE BOUT OF NAUSEA THIS AFTERNOON ZOFRAN WAS EFFECTIVE IN TREATING. PT HAS POOR APPETITE AT THIS TIME. PT EDUCATED ON EGD AND NPO STATUS. PLAN IS FOR EGD TOMORROW. NO ACUTE CHANGES TODAY.
--- NOTE | 2021-07-22 06:39 | NUR ---
PATIENT IS A&O X4. GAIT IS WEAK. PATIENT HAS BEEN NPO SINCE 0000 FOR A EGD THIS AM. PATIENT IS IRRITATED THAT HE CAN NOT HAVE FLUIDS BY MOUTH AT THIS TIME.
--- NOTE | 2021-07-22 09:55 | NUR ---
07/22/21 0955 Rob Yu History, Chart, Medications and Allergies reviewed before start of procedure. Patient confirms NPO status and agrees with scheduled surgery. 3-LEAD EKG REVIEWED WITH PHYSICIAN PRIOR TO START OF PROCEDURE. MONITOR INTACT WITH CONTINUOUS PULSE OXIMETRY AND INTERMITTENT BP. PATIENT DETERMINED TO BE ASA APPROPRIATE FOR PROPOFOL SEDATION PRIOR TO START OF PROCEDURE BY DR. HAWKINS.
[2021-07-22 10:01] LABS: Anion Gap 9 mmol/L (6-16); Blood Urea Nitrogen 21 mg/dL (8-24); CO2, Blood 24 mmol/L (21-32); Calcium, Blood 9.1 mg/dL (8.5-10.1); Chloride, Blood 103 mmol/L (98-108); Creatinine, Blood 0.84 mg/dL (0.60-1.20); Glomerular Filtration Rate >60 (60-); Glucose, Blood 160 mg/dL (70-99); Potassium, Blood 4.5 mmol/L (3.5-5.5); Sodium, Blood 136 mmol/L (136-145)
--- NOTE | 2021-07-22 11:22 | NUR ---
ON RE-EVALUATION OF EFFECTIVENESS OF ZOFRAN FOUND PT AWAKE BUT SOB. PT REPORTED NAUSEA RESOLVED BUT FELT "ANXIOUS AND CAN'T CATCH MY BREATH." O2 SATS CHECKED AND WERE 87% ON RA. LS CLEAR THROUGHOUT, SLIGHTLY DIM ON RLL. DURING PT REPORT FROM WASH BOX OPERATOR ROCHELLE SHE HAD INDICATED PT MAY HAVE ASPIRATED. PLACED PT ON O2 VIA NC AND TITRATED TO 6 LPM VIA NC TO GET SATS UP TO 93%. BP 116/79, HR 97, TEMP 97.9. NOTIFIED DR. MOE OF CONCERNS AND RECEIVED ORDER FOR O2 THERAPY TITRATE TO KEEP SAATS ABOVE 90 AND HOLD LUNCH AND GIVE ICE CHIPS FOR NOW. ORDER PROCESSED. WILL HOLD LUNCH AND REPLACE ICE WATER WITH ICE CHIPS.
--- NOTE | 2021-07-22 13:45 | NUR ---
TELE REPORTED HR GREATER THAN [address] MOE ORDERED DOSE OF METOPROLOL 5 MG IV NOW. NOTIFIED HAND CELL TUBER OF IV PUSH. NO ACUTE CHANGES REPORTED BY TELE AND REPORTED HR HAD DECREASED TO 138 BPM. PT IS SLIGHTLY SOB, AWAKE AND ALERT THROUGH PUSH.
--- NOTE | 2021-07-22 15:41 | NUR ---
PT BP NOW 75/52, HR 139, SATS 97% TITRATED TO 2 LPM VIA NC, RR 22, TEMP 97.7, PT DENIES CP AND IN NO APPARENT DISTRESS. PT HAS HAD ONE LITER BOLUS OF LACTATED RINGERS, UNASYN RUNNING AT THIS TIME. DR. MOE NOTIFIED OF ABOVE. PER DR. MOE WILL ROUND ON PT.
--- NOTE | 2021-07-22 16:25 | NUR ---
DR. HERNANDEZ AND DR. MOE ROUNDED ON PT. PT SBP SITTING WAS 101/65. PT CONTINUES TO BE ASYMPTOMATIC. WEANED O2 DOWN TO 2 LPM VIA NC WITH SATS AT 97%. PT A/O X 4. VO RECEIVED TO GIVE 2ND LITER OF LACTATED RINGERS A BOLUS. RATE CHANGED FROM 200 ML/HR TO BOLUS RATE AFTER UNASYN COMPLETED INFUSING.
[2021-07-22 16:56] LABS: Hematocrit 40.1 % (37.0-53.0); Hemoglobin 14.1 g/dL (13.5-17.5)
--- NOTE | 2021-07-22 18:09 | NUR ---
SHIFT SUMMARY: PT A/O X 4, PLEASANT AND COOPERATIVE. POST EGD PT HAD EPISODE OF SHIVERING AND ELEVATED HR SUSTAINED IN THE 180'S. PT GIVEN PRN IV METOPROLOL AND BOLUS OF LACTATED RINGERS. ALSO HAD NAUSEA WITH ZOFRAN GIVEN AND INEFFECTIVE. REGLAN GIVEN AND EFFECTIVE IN TREATING NAUSEA. CXR RESULT REPORTED POSSIBLE ASPIRATION. UNASYN GIVEN PER ORDER. PT VITALS AT SHIFT END WAS 92/67, HR 124, SATS 92% ON RA, RR 18, TEMP 98.1. PT A/O X 4 ASYMPTOMATIC AT THIS TIME.
[2021-07-23 04:44] LABS: Hematocrit 36.2 % (37.0-53.0); Hemoglobin 12.4 g/dL (13.5-17.5); Mean Corpuscular HGB 33.5 pg (26.0-34.0); Mean Corpuscular HGB Conc 34.3 g/dL (31.5-36.5); Mean Corpuscular Volume 98 fL (80-100); Mean Platelet Volume 10.3 fL (9.1-12.4); Platelet Count 233 K/mm3 (150-400); RDW Coefficient Variation 12.4 % (11.7-14.2); RDW Standard Deviation 44.6 fL (35.1-46.3); White Blood Cell Count 19.43 K/mm3 (4.00-11.30)
[2021-07-23 04:54] LABS: Anion Gap 9 mmol/L (6-16); Blood Urea Nitrogen 29 mg/dL (8-24); Bun/Creatinine Ratio 25.4 (12.0-20.0); CO2, Blood 23 mmol/L (21-32); Calcium, Blood 8.1 mg/dL (8.5-10.1); Chloride, Blood 106 mmol/L (98-108); Creatinine, Blood 1.14 mg/dL (0.60-1.20); Glomerular Filtration Rate >60 (60-); Glucose, Blood 150 mg/dL (70-99); Potassium, Blood 4.2 mmol/L (3.5-5.5); Sodium, Blood 138 mmol/L (136-145)
--- NOTE | 2021-07-23 05:40 | NUR ---
PATIENT IS A&O X4. REPORTS HIS THROAT FEELING SOME BETTER THIS AM. TOOKA AM MEDICATIONS AND TOLERATED WELL. PATIENTS BP IS IMPROVED.
[2021-07-23 05:44] LABS: BAND PERCENT MAN 20 % (0-8); BASOPHILS PERCENT MAN 0 % (0-2); EOSINOPHILS PERCENT MAN 0 % (0-6); LYMPHOCYTES ABSOLUTE MAN 0.77 K/mm3 (0.84-5.20); LYMPHOCYTES PERCENT MAN 4 % (21-46); MONOCYTES ABSOLUTE MAN 0.38 K/mm3 (0.16-1.47); MONOCYTES PERCENT MAN 2 % (4-13); NEUTROPHILS ABSOLUTE MAN 18.26 K/mm3 (1.96-9.15); SEG NEUTROPHILS PERCENT MAN 74 % (41-73); TOTAL CELLS COUNTED 100
--- NOTE | 2021-07-23 18:46 | NUR ---
SHIFT SUMMARY: PT A/O X 4 IND IN ROOM WITH WALKER. PLEASANT AND COOPERATIVE. PT ADVANCED DIET TO SOFT BITES AND HAS TOLERATED WELL. NO NAUSEA, COUGHING, OR REPORTS OF HEARTBURN WITH SCHEDULED REGLAN, LIDOCAINE MOUTH WASH PRIOR TO MEALS. VITALS HAVE IMPROVED FROM YESTERDAY REMAINED AT NS[facility] THROUGHOUT THE DAY. NO ACUTE CHANGES TO REPORT.
[2021-07-24 05:10] LABS: BASOPHILS ABSOLUTE AUTO 0.03 K/mm3 (0.00-0.23); BASOPHILS PERCENT AUTO 0 % (0-2); EOSINOPHILS ABSOLUTE AUTO 0.08 K/mm3 (0.00-0.68); EOSINOPHILS PERCENT AUTO 1 % (0-6); Hematocrit 33.3 % (37.0-53.0); Hemoglobin 11.3 g/dL (13.5-17.5); IMMATURE GRAN ABSOLUTE AUTO 0.09 K/mm3 (0.00-0.10); IMMATURE GRAN PERCENT AUTO 1 % (0-1); LYMPHOCYTES ABSOLUTE AUTO 1.42 K/mm3 (0.84-5.20); LYMPHOCYTES PERCENT AUTO 12 % (21-46); MONOCYTES ABSOLUTE AUTO 0.32 K/mm3 (0.16-1.47); MONOCYTES PERCENT AUTO 3 % (4-13); Mean Corpuscular HGB 33.4 pg (26.0-34.0); Mean Corpuscular HGB Conc 33.9 g/dL (31.5-36.5); Mean Corpuscular Volume 99 fL (80-100); Mean Platelet Volume 10.2 fL (9.1-12.4); NEUTROPHILS ABSOLUTE AUTO 9.86 K/mm3 (1.96-9.15); NEUTROPHILS PERCENT AUTO 84 % (41-73); Platelet Count 245 K/mm3 (150-400); RDW Coefficient Variation 12.3 % (11.7-14.2); RDW Standard Deviation 44.9 fL (35.1-46.3); Red Blood Cell Count 3.38 M/mm3 (4.30-5.90)
--- NOTE | 2021-07-24 05:23 | NUR ---
A&O X4. PATIENT STATES HE IS FEELING BETTER TODAY AND HAD A GOOD DAY. PATIENT UP AND AMBULATING TO BATHROOM WITH GREATER EASE. POSSIBILITY OF DISCHARGE TODAY.
[2021-07-24 06:12] LABS: Anion Gap 11 mmol/L (6-16); Blood Urea Nitrogen 16 mg/dL (8-24); Bun/Creatinine Ratio 17.3 (12.0-20.0); CO2, Blood 23 mmol/L (21-32); Calcium, Blood 8.2 mg/dL (8.5-10.1); Chloride, Blood 104 mmol/L (98-108); Creatinine, Blood 0.93 mg/dL (0.60-1.20); Glomerular Filtration Rate >60 (60-); Glucose, Blood 126 mg/dL (70-99); Potassium, Blood 3.5 mmol/L (3.5-5.5); Sodium, Blood 138 mmol/L (136-145)
[2021-07-24] MEDS ORDERED: METO10 PO (14:00)
[2021-07-24] MEDS ORDERED: AMOCLA875 PO (14:02)
--- NOTE | 2021-07-24 15:42 | NUR ---
PT AOX4 AND COPPERATIVE OF CARE NO DISTRESS NOTED. PT HAD ALL PAPERWORK REVIEWED AND EDUCATIONAL MATERIAL SENT WITH HIM. CENTRAL LINE WAS REMOVED AN HOUR PRIOR TO DISCHARGE AND PT WAS INSTRUCTED NOT TO SHOWER FOR 24 HRS. PT VERBALIZED UNDERSTANDING AND TO SCHEDULE FOLLOW UP APPOINTMENTS INSTRUCTED. ALL PERSONAL BELONINGS WERE COLLECTED AND PT ESCORTED OUT [facility]. NO DISTRESS NOTED AND PT WAS ABLE TO TOLERATE EATING WELL TODAY.
== END 2021-07-24 15:20 | disposition home or self-care (01) | DRG 438 ==
LOC: ER 10:21 → PCU 12:31 → MEDS 12:31 → PCU 07-15 21:29 → MEDS 07-16 17:37
PROVIDERS: Emergency Medicine; Family Medicine; Internal Medicine Gastroenterology; Nurse Practitioner Acute Care; Student in an Organized Health Care Education/Training Program; ADMIT Hospitalist
PROC: 02HV33Z Insertion of Infusion Device into Superior Vena Cava, Percutaneous Approach (ICD-10-PCS; 2021-07-16)
PROC: B518ZZA Fluoroscopy of Superior Vena Cava, Guidance (ICD-10-PCS; 2021-07-16)
PROC: 0DJ08ZZ Inspection of Upper Intestinal Tract, Via Natural or Artificial Opening Endoscopic (ICD-10-PCS; principal; 2021-07-22 09:00)
DX: K85.21 Alcohol induced acute pancreatitis with uninfected necrosis (principal); J96.01 Acute respiratory failure with hypoxia; J69.0 Pneumonitis due to inhalation of food and vomit; R65.20 Severe sepsis without septic shock; A41.9 Sepsis, unspecified organism; I82.890 Acute embolism and thrombosis of other specified veins; K56.7 Ileus, unspecified; K22.10 Ulcer of esophagus without bleeding; I85.00 Esophageal varices without bleeding; Z20.822 Contact with and (suspected) exposure to COVID-19; E87.6 Hypokalemia; R13.10 Dysphagia, unspecified; R07.89 Other chest pain; I95.9 Hypotension, unspecified; K31.84 Gastroparesis; K21.9 Gastro-esophageal reflux disease without esophagitis; R79.89 Other specified abnormal findings of blood chemistry; F10.10 Alcohol abuse, uncomplicated; E78.1 Pure hyperglyceridemia; F41.8 Other specified anxiety disorders; Z90.49 Acquired absence of other specified parts of digestive tract; Z98.890 Other specified postprocedural states; Z71.41 Alcohol abuse counseling and surveillance of alcoholic; Z87.891 Personal history of nicotine dependence; Z86.010 Personal history of colon polyps; Z79.82 Long term (current) use of aspirin; Z79.899 Other long term (current) drug therapy
CPT/HCPCS: 0241U; 36415; 36556; 71045; 74160; 74181; 76937; 80048; 80053; 80061; 81003; 83036; 83690; 83721; 83735; 84132; 85014; 85018; 85025; 85610; 92610; 93005; 93010; 94760; 94762; 96361; 96374-59; 96375; 97110; 97112; 97116; 97161; 97165; 97535; 99285-25; A9270; C1751; C9113; J0295; J1170; J1650; J1885; J2060; J2405; J2543; J2550; J2704; J2765; J3411; J3480; J7030; J7050; J7120; Q9967